=== PATIENT | female | born 1980 | race Caucasian/White ===

== ENCOUNTER 2019-07-30 10:21 | Emergency (ER) | payer BC ==
[2019-07-30 10:35] VITALS: RESP 18; TEMP 97.8
[2019-07-30] MEDS ORDERED: Acetaminophen-Codeine 300-30mg TAB PO STA (11:02)
[2019-07-30] MEDS ORDERED: LIDOCAINE 5% PATCH TOPICAL STA (11:02)
--- NOTE | 2019-07-30 11:08 | ED ---
General Adult HPI - General Chief complaint: Extremity Injury, Upper Stated complaint: arm & finger pain/numbness Time Seen by Provider: 07/30/19 10:40 Source: patient Mode of arrival: ambulatory Limitations: no limitations - History of Present Illness Initial comments: Patient is a 38-year-old female presenting to the emergency department with a chief complaint of right arm and neck pain. Patient reports 19 days ago she had a "kink" on the right side of her neck. Patient reports she attempted to sleep it off when she woke up the next day she developed pain along from the neck radiating distally to the right shoulder and arm. Patient reports the pain has been gradually getting worse causing her limited range of motion in the arm due to the pain. Patient reports she has seen her primary care 3 times who has only prescribed her baclofen and prednisone. Patient reports she went to another emergency room center who performed a CAT scan and discharge her with [place]. Patient reports she went to a neurologist who told her to come to the ED for pain control and to have an MRI. Patient denies any right lower external weakness. Patient reports the pain is located in the upper thoracic/lower cervical right paraspinal region and radiating distally to the upper right extremity. Patient denies any numbness and tingling. Patient reports the pain is exacerbated with right rotation of her head. Patient denies any headaches, blurry vision, chest pain, shortness of breath, lower extremity weakness.patient denies any trauma. - Related Data Allergies Allergy/AdvReac Type Severity Reaction Status Date / Time No Known Allergies Allergy Verified 07/30/19 10:30 Review of Systems ROS Statement: Those systems with pertinent positive or pertinent negative responses have been documented in the HPI. ROS Other: All systems not noted in ROS Statement are negative. Past Medical History Past Medical History: Asthma History of Any Multi-Drug Resistant Organisms: None Reported Past Surgical History: Section Additional Past Surgical History / Comment(s): c section x 2 Past Psychological History: Anxiety, PTSD Smoking Status: Current every day smoker Past Alcohol Use History: None Reported Past Drug Use History: Marijuana General Exam Limitations: no limitations General appearance: alert, in no apparent distress Head exam: Present: atraumatic, normocephalic, normal inspection Eye exam: Present: normal appearance, scleral icterus ENT exam: Present: normal exam, normal oropharynx, mucous membranes moist, TM's normal bilaterally, normal external ear exam Neck exam: Present: normal inspection, tenderness (Right paraspinal, lower ce rvical region), full ROM. Absent: lymphadenopathy Respiratory exam: Present: normal lung sounds bilaterally Cardiovascular Exam: Present: regular rate, normal rhythm, normal heart sounds Extremities exam: Present: normal inspection, normal capillary refill, other (+2 ulnar and radial pulses bilaterally.). Absent: full ROM (Limited range of motion in the right upper extremity due to pain) Back exam: Present: normal inspection, full ROM, tenderness (Right paraspinal upper thoracic region), paraspinal tenderness. Absent: CVA tenderness (R), CVA tenderness (L), muscle spasm Neurological exam: Present: alert, oriented X3 Psychiatric exam: Present: normal affect, normal mood Skin exam: Present: warm, intact, normal color Course Vital Signs 07/30/19 07/30/19 10:30 11:34 Temperature 97.8 F Pulse Rate 91 66 Respiratory 18 18 Rate Blood Pressure 150/46 119/66 O2 Sat by Pulse 99 98 Oximetry Medical Decision Making - Medical Decision Making Patient is a 38-year-old female presenting to the emergency department with a chief complaint of right arm and neck pain. Physical examination is indicative of right paraspinal tenderness in the cervical region and the pain seems to be radiating distally along the right upper extremity. Patient has full range of motion in the right upper extremities. Patient appears to be in a lot of discomfort. Patient had a CT performed an another ED department. CT results were obtained showing mild joint arthropathy and narrowing on the right-sided C3-C4 neuroforamen. Based on description of the pain, physical examination and imaging I suspect the patient to have a cervical radiculopathy. There has been no trauma to the region. Patient was given symptomatically control in the ED. Patient was advised to follow-up with an software quality specialist for further management. MAPS obtained and shows no signs of prescription abuse. Patient will be discharged with a Tylenol 3 starter pack. Patient does not to drive or operative heavy machinery when taking the medication. Strict return parameters were thoroughly discussed with patient or standing agreeable. Case discussed with physician. Disposition Clinical Impression: Cervical radiculopathy Disposition: HOME SELF-CARE Condition: Stable Instructions (If sedation given, give patient instructions): Cervical Radiculopathy (ED) Additional Instructions: Please follow up with an software quality specialist. Please return to emergency department if symptoms worsen. Alternate between Tylenol and ibuprofen for pain control. Is patient prescribed a controlled substance at d/c from ED?: No Referrals: None,Stated [Primary Care Provider] - 1-2 days Eric Oconnell DO [Doctor of Osteopathic Medicine] - 1-2 days Blaise Diamond MD [STAFF PHYSICIAN] - 1-2 days Time of Disposition: 14:08
[2019-07-30 11:35] VITALS: PULSE 66
[2019-07-30] MEDS ORDERED: HYDROmorphone 0.5 MG/0.5 ML SYRINGE IVP STA (12:30)
[2019-07-30] MEDS ORDERED: KETOROLAC 30 MG/ML 1 ML VIAL IVP STA (12:30)
[2019-07-30] MEDS ORDERED: ACET/COD 300 MG/30 MG STARTER PACK 6 TAB BTL PO STA (14:08)
[2019-07-30 14:22] VITALS: BP 121/77
== END 2019-07-30 14:22 | disposition home or self-care (01) ==
LOC: EC 10:21
DX: M54.12 Radiculopathy, cervical region (principal); M12.88 Other specific arthropathies, not elsewhere classified, other specified site; M48.02 Spinal stenosis, cervical region; F17.200 Nicotine dependence, unspecified, uncomplicated
CPT/HCPCS: 99283; 96374; 96375; J1885; J1170

== ENCOUNTER → 2020-04-24 | Outpatient (CLI) | payer OTHER ==
--- NOTE | 2020-04-24 14:58 | US ---
EXAMINATION TYPE: US pelvis complete transvag DATE OF EXAM: 04/24/2020 COMPARISON: NONE CLINICAL HISTORY: N83.0 OVARIAN CYST. Pt states known bilateral ovarian cysts/ pt states abnormal vag inal bleeding/ pt states scheduled for possible hysterectomy TECHNIQUE: Transvaginal (TV) and Transabdominal (TA) . Transabdominal sonographic images of the pel vis were acquired. Transvaginal sonographic images were medically necessary to better assess the fol lowing anatomy: uterus Date of LMP: 04/10/2020 EXAM MEASUREMENTS: Uterus: 9.5 x 5.7 x 7.2 cm Endometrial Stripe: 1.0 cm Right Ovary: 9.6 x 9.6 x 4.6 cm Left Ovary: 7.3 x 5.4 x 5.2 cm 1. Uterus: Anteverted Heterogeneous, Nabothian cysts in cervix/ C-sec scar visualized 2. Endometrium: ? thickened 3. Right Ovary: 2 complex cystic lesions 1)= 6.3 x 4.7 x 4.9 cm 2)= 5.3 x 5.5 x 5.0 cm 4. Left Ovary: Complex cystic lesion= 5.8 x 4.3 x 5.1 cm 5. Bilateral Adnexa: wnl 6. Posterior cul-de-sac: wnl Heterogeneous anteverted uterus. Endometrium within normal limits for early secretory phase of menstr ual cycle. No free fluid in pelvic cul-de-sac. Nonsimple cysts identified in both ovaries with diffuse low-lying echoes, suspect hemorrhagic cysts b ilaterally. One of the nonsimple cysts in the right ovary may have a peripheral lobulated solid compo nent. IMPRESSION: Nonsimple cyst bilateral ovaries, suspect hemorrhagic cysts. Short-term ultrasound follow -up in 6 weeks' time advised to reassess. Cystic neoplasm not excluded.
== END | disposition home or self-care (01) ==
LOC: RADUSWWP 13:52
PROVIDERS: ATTEND Obstetrics & Gynecology
DX: N83.202 Unspecified ovarian cyst, left side (principal); N83.201 Unspecified ovarian cyst, right side
CPT/HCPCS: 76830; 76856

== ENCOUNTER → 2020-10-18 | Outpatient (CLI) | payer BC, OTHER ==
[2020-10-18 12:50] LABS: Basophils # (A) 0.1 k/uL (0-0.2); Basophils % (A) 1 %; Eosinophils # (A) 0.4 k/uL (0-0.7); Eosinophils % (A) 4 %; HCT 34.2 % (34.0-46.0); HGB 11.1 gm/dL (11.4-16.0); Hypochromasia Moderate; Lymphocytes # (A) 2.5 k/uL (1.0-4.8); Lymphocytes % (A) 28 %; MCH 25.9 pg (25.0-35.0); MCHC 32.5 g/dL (31.0-37.0); MCV 79.7 fL (80.0-100.0); Mean Platelet Volume 8.4; Monocytes # (A) 0.3 k/uL (0-1.0); Monocytes % (A) 4 %; Neutrophils # (A) 5.5 k/uL (1.3-7.7); Neutrophils % (A) 63 %; Platelet Count 215 k/uL (150-450); Poikilocytosis Slight; RBC 4.29 m/uL (3.80-5.40); RDW 15.6 % (11.5-15.5); WBC 8.8 k/uL (3.8-10.6)
[2020-10-18 13:01] LABS: Appearance,Urine Clear (Clear); Bilirubin,Urine Negative (Negative); Blood,Urine Trace (Negative); Color,Urine Yellow; Glucose,Urine (UA) Negative (Negative); Ketones,Urine Negative (Negative); Leukocyte Esterase,Urine Negative (Negative); Mucus,Urine Many /hpf; Nitrite,Urine Negative (Negative); PH, Urine 5.5 (5.0-8.0); Partial Thromboplastin Time 25.3 sec (22.0-30.0); Protein,Urine Negative (Negative); Prothrombin Time 10.4 sec (9.0-12.0); RBC,Urine 1 /hpf (0-5); Specific Gravity,Urine 1.026 (1.001-1.035); Squamous Epithelial Cell,Urine 4 /hpf (0-4); Urobilinogen,Urine <2.0 mg/dL (<2.0); WBC,Urine 1 /hpf (0-5)
[2020-10-18 13:09] LABS: ALT 15 U/L (4-34); AST 23 U/L (14-36); African American GFR (CKD) >90 (>60 ml/min/1.73 sqM); Albumin 4.3 g/dL (3.5-5.0); Alkaline Phosphatase 71 U/L (38-126); Anion Gap 8 mmol/L; Blood Urea Nitrogen 13 mg/dL (7-17); Carbon Dioxide 27 mmol/L (22-30); Chloride 104 mmol/L (98-107); Cholesterol 180 mg/dL (<200); Glucose 91 mg/dL (74-99); HDL Cholesterol 39 mg/dL (40-60); LDL Cholesterol,Calculated 109 mg/dL (0-99); Non-African American GFR(CKD) >90 (>60 ml/min/1.73 sqM); Potassium 4.1 mmol/L (3.5-5.1); Sodium 139 mmol/L (137-145); Total Bilirubin 0.5 mg/dL (0.2-1.3); Total Protein 7.3 g/dL (6.3-8.2); Triglycerides 158 mg/dL (<150)
[2020-10-18 13:24] LABS: T4, Free (Free Thyroxine) 0.84 ng/dL (0.78-2.19)
[2020-10-18 21:04] LABS: Hemoglobin A1C 5.5 % (4.0-6.0)
== END | disposition home or self-care (01) ==
LOC: LABPAT 11:47
PROVIDERS: ATTEND Family Medicine
DX: Z01.818 Encounter for other preprocedural examination (principal); E66.01 Morbid (severe) obesity due to excess calories
CPT/HCPCS: 80053; 80061; 81001; 82306; 83036; 84439; 84443; 85025; 85610; 85730

== ENCOUNTER → 2020-11-02 | Outpatient (CLI) | payer BC, OTHER ==
[2020-11-02 16:19] LABS: Basophils % (A) 0 %; Eosinophils # (A) 0.3 k/uL (0-0.7); Eosinophils % (A) 4 %; HCT 30.3 % (34.0-46.0); HGB 9.9 gm/dL (11.4-16.0); Hypochromasia Slight; Lymphocytes # (A) 2.1 k/uL (1.0-4.8); Lymphocytes % (A) 29 %; MCH 25.5 pg (25.0-35.0); MCHC 32.6 g/dL (31.0-37.0); MCV 78.3 fL (80.0-100.0); Mean Platelet Volume 7.5; Monocytes # (A) 0.3 k/uL (0-1.0); Monocytes % (A) 4 %; Neutrophils # (A) 4.5 k/uL (1.3-7.7); Neutrophils % (A) 62 %; Platelet Count 308 k/uL (150-450); RBC 3.87 m/uL (3.80-5.40); RDW 15.6 % (11.5-15.5); WBC 7.2 k/uL (3.8-10.6)
[2020-11-02 16:41] LABS: African American GFR (CKD) >90 (>60 ml/min/1.73 sqM); Anion Gap 6 mmol/L; Blood Urea Nitrogen 8 mg/dL (7-17); Calcium 8.6 mg/dL (8.4-10.2); Carbon Dioxide 27 mmol/L (22-30); Chloride 106 mmol/L (98-107); Glucose 92 mg/dL (74-99); Non-African American GFR(CKD) >90 (>60 ml/min/1.73 sqM); Potassium 4.1 mmol/L (3.5-5.1); Sodium 139 mmol/L (137-145)
== END | disposition home or self-care (01) ==
LOC: LABPAT 15:42
PROVIDERS: ATTEND Obstetrics & Gynecology
DX: Z01.818 Encounter for other preprocedural examination (principal)
CPT/HCPCS: 36415; 80048; 85025

== ENCOUNTER 2020-11-06 05:51 | Observation (INO) | payer BC, OTHER ==
[2020-11-02 14:07] VITALS: BMI 44.6
[~2020-11-06 05:51] MED LIST: DEXAMETHASONE SOD PHOSPHATE 4 MG/ML 1 ML VIAL IV ONE; LIDOCAINE 1% (10MG/ML) FOR IV START INTRADERMA PRN; SCOPOLAMINE 1.5MG/72HR PATCH TRANSDERM ONE
[2020-11-06] MEDS: LACTATED RINGERS 1,000 ML IV SCH (06:39)
[2020-11-06] MEDS: HYDROmorphone 0.5 MG/0.5 ML SYRINGE IVP PRN ×5 (06:45→10:16)
--- NOTE | 2020-11-06 07:09 | P.HPOB ---
History of Present Illness H&P Date: 11/06/20 Chief Complaint: Pelvic pain, ovarian cysts 40 year old presents for total laparoscopoic hysterectomy, right salpingo- oopherectomy, left salpingectomy and possible left oopherectomy, with da rosalva; possible total abdominal hysterectomy. She has had persistent ovarian cysts, paraovarian cyst on the left and continued pelvic pain. Review of Systems All systems: negative Constitutional: Denies chills, Denies fever Eyes: denies blurred vision, denies pain Ears, nose, mouth and throat: Denies headache, Denies sore throat Cardiovascular: Denies chest pain, Denies shortness of breath Respiratory: Denies cough Gastrointestinal: Denies abdominal pain, Denies diarrhea, Denies nausea, Denies vomiting Genitourinary: Denies dysuria, Denies hematuria Musculoskeletal: Denies myalgias Integumentary: Denies pruritus, Denies rash Neurological: Denies numbness, Denies weakness Psychiatric: Denies anxiety, Denies depression Endocrine: Denies fatigue, Denies weight change Past Medical History Past Medical History: Asthma, Musculoskeletal Disorder Additional Past Medical History / Comment(s): recent anemia issues per pt. History of Any Multi-Drug Resistant Organisms: None Reported Past Surgical History: Section Additional Past Surgical History / Comment(s): c section x 2, pain procedures Past Anesthesia/Blood Transfusion Reactions: No Reported Reaction Additional Past Alcohol Use History / Comment(s): down to 6-7 cigs/day, has smoked for 20 yrs. - Past Family History Mother Family Medical History: No Reported History Medications and Allergies Home Medications Medication Instructions Recorded Confirmed Type Albuterol Inhaler (Mhu) [Ventolin 1 - 2 puff INHALATION RT-Q6H PRN 10/14/19 11/06/20 History Hfa Inhaler] Albuterol Nebulized [Ventolin 2.5 mg INHALATION Q6H PRN 10/14/19 11/06/20 History Nebulized] Ferrous Sulfate [Feosol] 325 mg PO DAILY 11/02/20 11/06/20 History Allergies Allergy/AdvReac Type Severity Reaction Status Date / Time No Known Allergies Allergy Verified 11/06/20 06:28 Exam Osteopathic Statement: *. No significant issues noted on an osteopathic structural exam other than those noted in the History and Physical/Consult. Vital Signs Temp Pulse Resp BP Pulse Ox 11/06/20 06:29 97.6 F 71 18 111/59 99 Intake and Output 11/05/20 11/06/20 11/06/20 22:59 06:59 14:59 Other: Weight 113.6 kg HEart: RRR Lungs: CTAB Abdomen: soft, nontender Extremeties: neg elvira's Assessment and Plan (1) Pelvic pain Current Visit: Yes Status: Acute Code(s): R10.2 - PELVIC AND PERINEAL PAIN SNOMED Code(s): 40174886 (2) Ovarian cyst Current Visit: Yes Status: Acute Code(s): N83.209 - UNSPECIFIED OVARIAN CYST, UNSPECIFIED SIDE SNOMED Code(s): 16915447 Plan: 1. TLH RSO, LS, possible LSO with da rosalva, diagnostic cystoscopy, possible NIRMAL BSO
[2020-11-06] MEDS ORDERED: fentaNYL (PF) 50 MCG/ML 2 ML AMP ONE (07:20)
[2020-11-06] MEDS ORDERED: MIDAZOLAM 2 MG/2 ML VIAL ONE (07:20)
[2020-11-06] MEDS ORDERED: NEOSTIGMINE 1 MG/ML 10 ML VIAL ONE (07:20)
[2020-11-06] MEDS ORDERED: LIDOCAINE 1% INJ 10MG/ML (20 ML MDV) ONE (07:20)
[2020-11-06] MEDS ORDERED: ONDANSETRON 4 MG/2 ML VIAL ONE (07:20)
[2020-11-06] MEDS ORDERED: SUCCINYLCHOLINE CHLORIDE 100 MG/5 ML SYR IV ONE (07:20)
[2020-11-06] MEDS ORDERED: HYDROmorphone (PF) 1 MG/ML ONE (07:20)
[2020-11-06] MEDS ORDERED: PROPOFOL 10 MG/ML 20 ML VIAL IV ONE (07:20)
[2020-11-06] MEDS ORDERED: GLYCOPYRROLATE 0.2 MG/ML 2 ML VIAL ONE (07:20)
[2020-11-06] MEDS ORDERED: ROCURONIUM 10 MG/ML (5 ML VIAL) IV ONE (07:20)
[2020-11-06] MEDS ORDERED: BUPIVACAINE (PF) 0.25% 30 ML VIAL SQ ONE ×2 (07:52→09:22)
[2020-11-06] MEDS ORDERED: LACTATED RINGERS 1,000 ML IV ONE ×2 (08:24→09:19)
--- NOTE | 2020-11-06 09:38 | P.OP ---
Date of Procedure: 11/06/20 Preoperative Diagnosis: 1. pelvic pain 2. bilateral ovarian cysts 3. endometriosis 4. pelvic adhesions Postoperative Diagnosis: 1. pelvic pain 2. bilateral ovarian cysts 3. endometriosis 4. pelvic adhesions Procedure(s) Performed: Total laparoscopic hysterectomy, bilateral salpingectomy with da mari Anesthesia: OLIVIA Surgeon: Destiney Sethi Informatics Educator #1: Wayne Baig Estimated Blood Loss (ml): 250 IV fluids (ml): 800 Urine output (ml): 200 Pathology: other (uterus, cervix, bilateral tubes and ovaries) Condition: stable Disposition: PACU Operative Findings: bilateral ovarian cysts and endometrioma, normal uterus, dilated fallopian tubes. endometriosis. posterior cul de sac adhesions. Description of Procedure: Patient taken the operating room where general anesthesia was obtained without difficulty. She is prepped and draped in normal sterile fashion dorsal lithotomy position, legs placed in the Csott stirrups. Weighted speculum placed in the vagina and the anterior lip the cervix was grasped with single-tooth tenaculum. The uterus sounded to 8 cm and the cervix diameter was 3 cm. The appropriate manipulator tip and ring were placed on the Ela manipulator. The Ela manipulator was then placed in the uterus. Oneal catheter was also placed. Attention was then turned to the abdomen and gloves were changed. A 5 mm supraumbilical incision was made the scalpel and a 5 mm optical trocar was placed under direct visualization. 10 cm to the right of this and 2 cm down a 5 mm incision was made and 8 mm da Mari port was placed under direct visualization. Same measurements on the opposite side of the patient's abdomen, the 5 mm incision was made and 8 mm da Mari port was placed under direct visualization. In the left upper quadrant a 10 mm incision was made and a 10 mm optical trocar was placed under direct visualization. The 5 mm optical trocar was then replaced with the 8 mm da Mari camera port. The robot was docked on patient's right side. The camera was introduced and then the monopolar curved scissor and [place] bipolar placed under direct visualization. I broke scrub and went to the physician console. I had already popped an endometrioma on the right ovary that was spilling chocolate fluid from the endometrioma in the pelvis. The right ovary was enlarged there is a large left cyst coming off of the left ovary. The both fallopian tubes were adhered to the ovaries which were then adhered to the posterior cul-de-sac, including the uterus and the posterior perineum. These areas were carefully peeled off the underlying structures and some blunt as well as sharp dissection was done. The left ovary was not well visualized at first. The left cyst was aspirated and then removed. Visualization showed that the left ovary was adhered to the posterior wall of the uterus. I was unable to do dissecting this free. The decision at this time was made to include the left ovary in a specimen for the surgery. The left infundibulopelvic ligament was cauterized with the [place] bipolar and cut with monopolar curved scissors. The left round ligament was cauterized with the [place] bipolar and cut with monopolar curved scissors. The posterior leaf of the broad ligament was taken down using the monopolar curved scissors. Anterior leaf of the broad ligament was then taken down using the monopolar curved scissors. The uterine artery was cauterized with the [place] bipolar and cut with monopolar curved scissors. The bladder flap was then started using the monopolar curved scissors. Attention was then turned to the right side of the patient's anatomy. Carefully dissected the right ovarian tissue off the posterior peritoneum. the right infundibular pelvic ligament was cauterized with the [place] bipolar and cut with monopolar curved scissors. The ovary was then freed by cauterizing and cutting through the utero-ovarian ligament and the fallopian tube. This was placed to the side. The right round ligament was cauterized with the [place] bipolar and cut with monopolar curved scissors. The anterior leaf was taken down using the monopolar curved scissors. The uterine artery was cauterized the [place] bipolar cut with monopolar curved scissors. The bladder flap was then finished on this side. Anterior colpotomy was made using the monopolar curved scissors. The rest of the uterus was from the vaginal cuff by following the ring around with the monopolar curved scissors through the uterosacral ligaments back to the anterior portion. Once the uterus and cervix were amputated they were pulled through the vaginal cuff. The ovarian tissue that had been placed this side was then placed through the vaginal cuff. Hemostasis was assured. The instruments were changed for the Cardier forcep and the lary suture cut. The vaginal cuff was then closed using 2-O stratafix barbed suture in a running fashion. Hemostasis was again assured and the pelvis was irrigated. All instruments were removed from the abdomen and the robot was undocked. I scrubbed back in to perform a cystoscopy. There were jets from both ureteral orifices. The abdominal incisions were closed with 4-0 Vicryl in a subcuticular fashion. Patient tolerated the procedure well, sponge and instrument counts correct 2 and she was taken to recovery room in stable condition condition
[2020-11-06] MEDS: ONDANSETRON 4 MG/2 ML VIAL IVP ONE (10:06)
[2020-11-06] MEDS ORDERED: KETOROLAC 15 MG/ML 1 ML VIAL IVP ONE (10:21)
[2020-11-06] MEDS ORDERED: ZOLPIDEM 5 MG TAB PO PRN (11:42)
[2020-11-06] MEDS ORDERED: Acetaminophen-Codeine 300-30mg TAB PO PRN (11:42)
[2020-11-06] MEDS ORDERED: diphenhydrAMINE 50 MG/ML 1 ML VIAL IVP PRN (11:42)
[2020-11-06] MEDS ORDERED: ONDANSETRON 4 MG/2 ML VIAL IVP PRN (11:42)
[2020-11-06] MEDS ORDERED: IBUPROFEN 600 MG TAB PO PRN (11:42)
[2020-11-06] MEDS ORDERED: ALBUTEROL NEBULIZED 2.5 MG/3 ML INHALATION PRN (13:29)
[2020-11-06] MEDS ORDERED: ALBUTEROL HFA INHALER INHALATION PRN (14:08)
[2020-11-06] MEDS: KETOROLAC 15 MG/ML 1 ML VIAL IVP PRN ×2 (16:07→23:44)
[2020-11-06] MEDS: SIMETHICONE 80 MG CHEWABLE PO PRN ×2 (19:58→23:45)
[2020-11-07] MEDS: SENNOSIDES-DOCUSATE SODIUM 1 EACH TAB PO SCH ×2 (00:28→10:55)
[2020-11-07] MEDS: Acetaminophen-Codeine 300-30mg TAB PO PRN ×2 (02:14→10:22)
[2020-11-07] MEDS: LACTATED RINGERS 1,000 ML IV SCH ×3 (02:47→10:51)
[2020-11-07] MEDS: ONDANSETRON 4 MG/2 ML VIAL IVP ONE (02:47)
[2020-11-07] MEDS: SIMETHICONE 80 MG CHEWABLE PO PRN (07:31)
[2020-11-07 07:45] LABS: Anisocytosis Slight; Basophils % (A) 0 %; Eosinophils % (A) 0 %; HCT 25.8 % (34.0-46.0); Hypochromasia Slight; Lymphocytes # (A) 1.7 k/uL (1.0-4.8); Lymphocytes % (A) 16 %; MCH 24.7 pg (25.0-35.0); MCHC 31.5 g/dL (31.0-37.0); MCV 78.4 fL (80.0-100.0); Mean Platelet Volume 7.7; Microcytosis Slight; Monocytes # (A) 0.4 k/uL (0-1.0); Monocytes % (A) 3 %; Neutrophils # (A) 8.6 k/uL (1.3-7.7); Neutrophils % (A) 80 %; Platelet Count 264 k/uL (150-450); RBC 3.29 m/uL (3.80-5.40); RDW 17.2 % (11.5-15.5); WBC 10.8 k/uL (3.8-10.6)
[2020-11-07 07:51] LABS: HGB 8.1 gm/dL (11.4-16.0)
--- NOTE | 2020-11-07 08:02 | P.DS ---
Providers Date of admission: 11/07/20 00:06 Expected date of discharge: 11/07/20 Attending physician: Destiney Sethi Primary care physician: Ashok Padilla - Discharge Diagnosis(es) (1) Pelvic pain Current Visit: Yes Status: Acute (2) Ovarian cyst Current Visit: Yes Status: Resolved (3) Status post robot-assisted surgical procedure TLH BSO Current Visit: Yes Status: Acute Hospital Course: She presented for total laparoscopic hysterectomy and possible bilateral salpingo-oophorectomy using da Mari for pelvic pain and ovarian cysts. She did undergo a TLHBSO with da Mari and diagnostic cystoscopy. Postoperative course was uncomplicated. She denies nausea, vomiting, chest pain, shortness of breath or calf pain. She is ambulating voiding without difficulty. Passing flatus and tolerating regular diet. Incisions are clean, dry, intact. She'll be discharged home postoperative day #1 in stable condition to follow-up with me in 3 weeks. Plan - Discharge Summary Discharge Rx Participant: Yes New Discharge Prescriptions: New Ibuprofen [Motrin] 600 mg PO Q6HR PRN #30 tab PRN Reason: Mild Discomfort Acetaminophen-Codeine 300-30mg [Tylenol w/codeine #3] 2 each PO Q6HR PRN #24 tab PRN Reason: Severe Pain No Action Albuterol Nebulized [Ventolin Nebulized] 2.5 mg INHALATION Q6H PRN PRN Reason: Dyspnea Albuterol Inhaler (Mhu) [Ventolin Hfa Inhaler] 1 - 2 puff INHALATION RT-Q6H PRN PRN Reason: Dyspnea Ferrous Sulfate [Feosol] 325 mg PO DAILY Discharge Medication List Albuterol Inhaler (Mhu) [Ventolin Hfa Inhaler] 1 - 2 puff INHALATION RT-Q6H PRN 10/14/19 [History] Albuterol Nebulized [Ventolin Nebulized] 2.5 mg INHALATION Q6H PRN 10/14/19 [History] Ferrous Sulfate [Feosol] 325 mg PO DAILY 11/02/20 [History] Acetaminophen-Codeine 300-30mg [Tylenol w/codeine #3] 2 each PO Q6HR PRN #24 tab 11/07/20 [Rx] Ibuprofen [Motrin] 600 mg PO Q6HR PRN #30 tab 02/23/21 [Rx] Follow up Appointment(s)/Referral(s): Destiney Sehti DO [Doctor of Osteopathic Medicine] - 3 Weeks Discharge Disposition: HOME SELF-CARE
[2020-11-07 10:09] VITALS: RESP 18
[2020-11-07 10:10] VITALS: BP 97/62; PULSE 85; TEMP 98.1
== END 2020-11-07 11:09 | disposition home or self-care (01) ==
LOC: OR 05:51 → 4FBP 09:43 → OR 23:55 → 4FBP 23:55 → OR 11-07 00:05 → UNDOADMOB 11-07 00:06 → 4FBP 11-07 00:06 → UNDODISOB 11-07 11:09
PROVIDERS: ADMIT Obstetrics & Gynecology; ATTEND Obstetrics & Gynecology
DX: D25.9 Leiomyoma of uterus, unspecified (principal); N72 Inflammatory disease of cervix uteri; N83.202 Unspecified ovarian cyst, left side; N83.201 Unspecified ovarian cyst, right side; N80.0 Endometriosis of uterus; F41.9 Anxiety disorder, unspecified; Z87.891 Personal history of nicotine dependence; Z83.3 Family history of diabetes mellitus; Z82.49 Family history of ischemic heart disease and other diseases of the circulatory system; Z80.0 Family history of malignant neoplasm of digestive organs; E66.01 Morbid (severe) obesity due to excess calories; Z68.41 Body mass index [BMI] 40.0-44.9, adult; G43.909 Migraine, unspecified, not intractable, without status migrainosus
CPT/HCPCS: 58552; S2900; 81025; 85025; 86850; 86900; 86901; 88307; 94640

== ENCOUNTER 2023-04-18 13:40 | Emergency (ER) | payer BC, OTHER ==
[2023-04-18] MEDS ORDERED: SODIUM CHLORIDE 0.9% 2,000 ML IV STA (14:09)
[2023-04-18] MEDS ORDERED: FAMOTIDINE 20 MG/2 ML VIAL IV STA (14:10)
[2023-04-18 14:40] LABS: Basophils % (A) 0 %; Eosinophils # (A) 0.1 k/uL (0-0.7); Eosinophils % (A) 1 %; HCT 43.4 % (34.0-46.0); HGB 15.3 gm/dL (11.4-16.0); Lymphocytes # (A) 1.2 k/uL (1.0-4.8); Lymphocytes % (A) 10 %; MCH 30.9 pg (25.0-35.0); MCHC 35.3 g/dL (31.0-37.0); MCV 87.4 fL (80.0-100.0); Mean Platelet Volume 8.6; Monocytes # (A) 0.5 k/uL (0-1.0); Monocytes % (A) 4 %; Neutrophils # (A) 10.4 k/uL (1.3-7.7); Neutrophils % (A) 84 %; Platelet Count 233 k/uL (150-450); RBC 4.96 m/uL (3.80-5.40); WBC 12.4 k/uL (3.8-10.6)
--- NOTE | 2023-04-18 14:45 | ED ---
Nausea/Vomiting/Diarrhea HPI - General Chief complaint: Nausea/Vomiting/Diarrhea Stated complaint: nausea, vomiting Time Seen by Provider: 04/18/23 13:42 Source: patient, EMS, RN notes reviewed Mode of arrival: EMS Limitations: no limitations - History of Present Illness Initial comments: This is a 42-year-old female who presents to the emergency department for nausea and vomiting. States that she had been on Wegovy 0.25 mg, however the pharmacy was out of this dose, and she was prescribed the 1.0 mg dose. She took this dose last night, and since this morning she's been vomiting profusely. She called EMS, who gave her a dose of epinephrine for hypotension and Zofran for the nausea and vomiting. She has since started to feel much better. Also states that when she was vomiting, her hands were cramping up and she could not move them, which has since resolved. Also reports associated chest discomfort, which she believes may be from all of the vomiting. Denies any fevers, chills, sore throat, cough, dyspnea, palpitations, abdominal pain, diarrhea, back pain, or headaches. MD complaint: nausea, vomiting - Related Data Home Medications Medication Instructions Recorded Confirmed Albuterol Inhaler [Ventolin Hfa 1 - 2 puff INHALATION RT-Q6H PRN 10/14/19 0 11/06/20 Inhaler] Albuterol Nebulized [Ventolin 2.5 mg INHALATION Q6H PRN 10/14/19 11/06/20 Nebulized] Ferrous Sulfate [Feosol] 325 mg PO DAILY 11/02/20 11/06/20 Previous Rx's Medication Instructions Recorded Acetaminophen-Codeine 300-30mg 2 each PO Q6HR PRN #24 tab 11/07/20 [Tylenol w/codeine #3] Ibuprofen [Motrin] 600 mg PO Q6HR PRN #30 tab 11/07/20 Ondansetron Odt [Zofran Odt] 4 mg PO Q8HR PRN #20 tab 04/18/23 Allergies Allergy/AdvReac Type Severity Reaction Status Date / Time No Known Allergies Allergy Verified 04/18/23 14:10 Review of Systems ROS Statement: Those systems with pertinent positive or pertinent negative responses have been documented in the HPI. ROS Other: All systems not noted in ROS Statement are negative. Past Medical History Past Medical History: Asthma, Musculoskeletal Disorder Additional Past Medical History / Comment(s): right shoulder down to fingertips numb, migraines History of Any Multi-Drug Resistant Organisms: None Reported Past Surgical History: Section Additional Past Surgical History / Comment(s): c section x 2, pain procedures Past Anesthesia/Blood Transfusion Reactions: No Reported Reaction Past Psychological History: Anxiety, PTSD Smoking Status: Former smoker Past Alcohol Use History: None Reported Past Drug Use History: Marijuana - Past Family History Mother Family Medical History: No Reported History General Exam Limitations: no limitations General appearance: alert, in no apparent distress Head exam: Present: atraumatic, normocephalic, normal inspection Respiratory exam: Present: normal lung sounds bilaterally. Absent: respiratory distress, wheezes, rales, rhonchi, stridor Cardiovascular Exam: Present: regular rate, normal rhythm, normal heart sounds. Absent: systolic murmur, diastolic murmur, rubs, gallop, clicks GI/Abdominal exam: Present: soft, normal bowel sounds. Absent: distended, tenderness, guarding, rebound, rigid Neurological exam: Present: alert, oriented X3, CN II-XII intact Psychiatric exam: Present: normal affect, normal mood Skin exam: Present: warm, dry, intact, normal color. Absent: rash Course Vital Signs 04/18/23 04/18/23 14:02 16:14 Temperature 98.6 F 98.1 F Pulse Rate 93 87 Respiratory 16 5 L Rate Blood Pressure 105/78 123/78 O2 Sat by Pulse 98 100 Oximetry Medical Decision Making - Medical Decision Making This is a 42-year-old female who presents to the emergency department for nausea and vomiting. Was pt. sent in by a medical professional or institution? @ -No Did you speak to anyone other than the patient for history? @ -No Did you review nursing and triage notes? @ -No, I disagree with the aspect about the medication not being in her system for 2 months. Patient told me that she had been taking 0.25 mg, however that medication ran out and was unavailable, causing her to have to increase the dose to 1 mg. Were old charts reviewed? @ -No Differential Diagnosis? @ -Differential Nausea and Vomiting: Gastroenteritis, cholecystitis, appendicitis, pancreatitis, migraine, benign positional vertigo, food borne illness, pyelonephritis, irritable bowel syndrome, influenza, Covid, GERD, incarcerated hernia, intestinal obstruction, this is not meant to be an all-inclusive list. EKG interpreted by me (3pts min.)? @ -EKG interpreted by me demonstrating the following: Sinus rhythm. Ventricular rate 85 bpm, UT interval 120 ms, QRS duration 93 ms, QTC 403 ms. X-rays interpreted by me (1pt min.)? @ -Chest x-ray obtained, my interpretation identifies no localized consolidations or infiltrates. CT interpreted by me (1pt min.)? @ -Not obtained U/S interpreted by me (1pt. min.)? @ -Not obtained What testing was considered but not performed? (CT, X-rays, U/S, labs)? Why? @ -None What meds were considered but not given? Why? @ -None Did you discuss the management of the patient with other professionals? @ -No Did you reconcile home meds? @ -No Was smoking cessation discussed for >3mins.? @ -No Was critical care preformed (if so, how long)? @ -No Were there social determinants of health that impacted care today? How? (Homelessness, low income, unemployed, alcoholism, drug addiction, transportation, low edu. Level, literacy, decrease access to med. care, [facility], rehab)? @ -No Was there de-escalation of care discussed even if they declined? (Discuss DNR or withdrawal of care, Hospice)? @ -No What co-morbidities impacted this encounter? (DM, HTN, Smoking, COPD, CAD, Cancer, CVA, Hep., AIDS, mental health diagnosis, sleep apnea, morbid obesity)? @ -Morbid obesity Was patient admitted / discharged? @ -Discharged. Lab work obtained and found to be nonactionable. Chest x-ray reveals no acute process. Patient initially declined the need for any nausea medication in the emergency department, as she was given Zofran by EMS. However she was given Pepcid and a 2 L bolus of IV fluids. She did later need a dose of Reglan to further help with the nausea, however this effectively managed it and she was able to drink water without difficulty. She continued to maintain adequate blood pressure while in the emergency department. Patient's heart score is 2. I did offer to repeat a second troponin, however the patient declined. Patient overall felt much better and requested discharge home. Prescription for Zofran provided with dosing instructions reviewed. Advised she avoid giving herself another dose of the Wegovy for the meantime. She is advised to slowly advance her diet as tolerated and remain well-hydrated with close follow-up with her primary care provider. Undiagnosed new problem with uncertain prognosis? @ -None Drug Therapy requiring intensive monitoring for toxicity (Heparin, Nitro, Insulin, Cardizem)? @ -None Were any procedures done? @ -None Diagnosis/symptom? @ -Nausea and vomiting, chest pain Acute, or Chronic, or Acute on Chronic? @ -Acute Uncomplicated (without systemic symptoms) or Complicated (systemic symptoms)? @ -Uncomplicated Side effects of treatment? @ -None Exacerbation, Progression, or Severe Exacerbation] @ -Not applicable Poses a threat to life or bodily function? @ -No Return precautions reviewed in depth, the patient is instructed to return to the emergency department with any new, worsening, or concerning symptoms. Patient verbalized understanding. This case was discussed in detail with the attending ED physician, Dr. Hahn. Presentation, findings, and treatment plan discussed in detail as well. - Lab Data Result diagrams: 04/18/23 14:23 04/18/23 14:23 Lab Results 04/18/23 04/18/23 04/18/23 Range/Units 14:23 14:23 14:23 WBC 12.4 H (3.8-10.6) k/uL RBC 4.96 (3.80-5.40) m/uL Hgb 15.3 (11.4-16.0) gm/dL Hct 43.4 (34.0-46.0) % MCV 87.4 (80.0-100.0) fL MCH 30.9 (25.0-35.0) pg MCHC 35.3 (31.0-37.0) g/dL RDW 13.0 (11.5-15.5) % Plt Count 233 (150-450) k/uL MPV 8.6 Neutrophils % 84 % Lymphocytes % 10 % Monocytes % 4 % Eosinophils % 1 % Basophils % 0 % Neutrophils # 10.4 H (1.3-7.7) k/uL Lymphocytes # 1.2 (1.0-4.8) k/uL Monocytes # 0.5 (0-1.0) k/uL Eosinophils # 0.1 (0-0.7) k/uL Basophils # 0.0 (0-0.2) k/uL Sodium 139 (137-145) mmol/L Potassium 4.0 (3.5-5.1) mmol/L Chloride 106 (98-107) mmol/L Carbon Dioxide 22 (22-30) mmol/L Anion Gap 11 mmol/L BUN 12 (7-17) mg/dL Creatinine 0.71 (0.52-1.04) mg/dL Est GFR (CKD-EPI)AfAm >90 (>60 ml/min/1.73 sqM) Est GFR (CKD-EPI)NonAf >90 (>60 ml/min/1.73 sqM) Glucose 95 (74-99) mg/dL Calcium 9.1 (8.4-10.2) mg/dL Magnesium 1.5 L (1.6-2.3) mg/dL Total Bilirubin 1.2 (0.2-1.3) mg/dL AST 46 H (14-36) U/L ALT 49 H (4-34) U/L Alkaline Phosphatase 79 (38-126) U/L Troponin I <0.012 (0.000-0.034) ng/mL Total Protein 7.2 (6.3-8.2) g/dL Albumin 4.3 (3.5-5.0) g/dL Amylase 40 (30-110) U/L Lipase 51 (23-300) U/L Urine Color Urine Appearance (Clear) Urine pH (5.0-8.0) Ur Specific Stuart (1.001-1.035) Urine Protein (Negative) Urine Glucose (UA) (Negative) Urine Ketones (Negative) Urine Blood (Negative) Urine Nitrite (Negative) Urine Bilirubin (Negative) Urine Urobilinogen (<2.0) mg/dL Ur Leukocyte Esterase (Negative) 04/18/23 Range/Units 14:36 WBC (3.8-10.6) k/uL RBC (3.80-5.40) m/uL Hgb (11.4-16.0) gm/dL Hct (34.0-46.0) % MCV (80.0-100.0) fL MCH (25.0-35.0) pg MCHC (31.0-37.0) g/dL RDW (11.5-15.5) % Plt Count (150-450) k/uL MPV Neutrophils % % Lymphocytes % % Monocytes % % Eosinophils % % Basophils % % Neutrophils # (1.3-7.7) k/uL Lymphocytes # (1.0-4.8) k/uL Monocytes # (0-1.0) k/uL Eosinophils # (0-0.7) k/uL Basophils # (0-0.2) k/uL Sodium (137-145) mmol/L Potassium (3.5-5.1) mmol/L Chloride (98-107) mmol/L Carbon Dioxide (22-30) mmol/L Anion Gap mmol/L BUN (7-17) mg/dL Creatinine (0.52-1.04) mg/dL Est GFR (CKD-EPI)AfAm (>60 ml/min/1.73 sqM) Est GFR (CKD-EPI)NonAf (>60 ml/min/1.73 sqM) Glucose (74-99) mg/dL Calcium (8.4-10.2) mg/dL Magnesium (1.6-2.3) mg/dL Total Bilirubin (0.2-1.3) mg/dL AST (14-36) U/L ALT (4-34) U/L Alkaline Phosphatase (38-126) U/L Troponin I (0.000-0.034) ng/mL Total Protein (6.3-8.2) g/dL Albumin (3.5-5.0) g/dL Amylase (30-110) U/L Lipase (23-300) U/L Urine Color Light Yellow Urine Appearance Clear (Clear) Urine pH 8.0 (5.0-8.0) Ur Specific Stuart 1.011 (1.001-1.035) Urine Protein Negative (Negative) Urine Glucose (UA) Negative (Negative) Urine Ketones Negative (Negative) Urine Blood Negative (Negative) Urine Nitrite Negative (Negative) Urine Bilirubin Negative (Negative) Urine Urobilinogen <2.0 (<2.0) mg/dL Ur Leukocyte Esterase Negative (Negative) - Radiology Data Radiology results: report reviewed, image reviewed Disposition Clinical Impression: Nausea and vomiting, Chest pain Disposition: HOME SELF-CARE Instructions (If sedation given, give patient instructions): Acute Nausea and Vomiting (ED) Additional Instructions: Return to the emergency department with any new, worsening, or concerning symptoms. You can take the Zofran up to every 8 hours as needed for nausea and vomiting. Slowly advance your diet as tolerated and remain well-hydrated. Follow up with your primary care provider in 1-2 days. Prescriptions: Ondansetron Odt [Zofran Odt] 4 mg PO Q8HR PRN #20 tab PRN Reason: Nausea And Vomiting Is patient prescribed a controlled substance at d/c from ED?: No Referrals: Ashok Padilla DO [Primary Care Provider] - 1-2 days
--- NOTE | 2023-04-18 14:51 | XR ---
EXAMINATION TYPE: XR chest 2V DATE OF EXAM: 04/18/2023 2:45 PM COMPARISON: CT chest 12/10/2009 TECHNIQUE: XR chest 2V Frontal and lateral views of the chest. CLINICAL INDICATION:Female, 42 years old with history of Chest pain; FINDINGS: Lungs/Pleura: There is no evidence of pleural effusion, focal consolidation, or pneumothorax. Pulmonary vascularity: Unremarkable. Heart/mediastinum: Cardiomediastinal silhouette is unremarkable. Musculoskeletal: No acute osseous pathology. Anterior cervical fusion hardware. IMPRESSION: No acute cardiopulmonary disease/process.
[2023-04-18 14:58] LABS: ALT 49 U/L (4-34); AST 46 U/L (14-36); African American GFR (CKD) >90 (>60 ml/min/1.73 sqM); Albumin 4.3 g/dL (3.5-5.0); Alkaline Phosphatase 79 U/L (38-126); Amylase 40 U/L (30-110); Anion Gap 11 mmol/L; Blood Urea Nitrogen 12 mg/dL (7-17); Calcium 9.1 mg/dL (8.4-10.2); Carbon Dioxide 22 mmol/L (22-30); Chloride 106 mmol/L (98-107); Glucose 95 mg/dL (74-99); Lipase 51 U/L (23-300); Magnesium 1.5 mg/dL (1.6-2.3); Non-African American GFR(CKD) >90 (>60 ml/min/1.73 sqM); Sodium 139 mmol/L (137-145); Total Bilirubin 1.2 mg/dL (0.2-1.3); Total Protein 7.2 g/dL (6.3-8.2)
[2023-04-18 15:03] LABS: Appearance,Urine Clear (Clear); Bilirubin,Urine Negative (Negative); Blood,Urine Negative (Negative); Color,Urine Light Yellow; Glucose,Urine (UA) Negative (Negative); Ketones,Urine Negative (Negative); Leukocyte Esterase,Urine Negative (Negative); Nitrite,Urine Negative (Negative); Protein,Urine Negative (Negative); Specific Gravity,Urine 1.011 (1.001-1.035); Urobilinogen,Urine <2.0 mg/dL (<2.0)
[2023-04-18] MEDS ORDERED: METOCLOPRAMIDE 5 MG/ML 2 ML VIAL IVP STA (15:17)
[2023-04-18] MEDS ORDERED: LORazepam 1 MG TAB PO STA (16:40)
[2023-04-18] MEDS ORDERED: ONDANSETRON 4 MG ODT STARTER PACK 2 TAB BTL PO STA (16:40)
[2023-04-18 16:51] VITALS: BP 123/78; PULSE 87; RESP 5; TEMP 98.1
== END 2023-04-18 17:10 | disposition home or self-care (01) ==
LOC: EC 13:40
DX: R11.2 Nausea with vomiting, unspecified (principal); R07.89 Other chest pain; J45.909 Unspecified asthma, uncomplicated; F41.9 Anxiety disorder, unspecified; Z87.891 Personal history of nicotine dependence; F12.90 Cannabis use, unspecified, uncomplicated; Z79.899 Other long term (current) drug therapy
CPT/HCPCS: 36415; 80053; 82150; 83690; 83735; 84484; 85025; 81003; 71046; 99284; 96374; 96375; 96361 ×2; J2765; S0119

== ENCOUNTER 2023-07-17 22:20 | Emergency (ER) | payer BC, OTHER ==
[2023-07-17 22:29] VITALS: TEMP 98.5
[2023-07-17] MEDS ORDERED: SODIUM CHLORIDE 0.9% 1,000 ML IV STA (22:52)
[2023-07-17] MEDS ORDERED: ONDANSETRON 4 MG/2 ML VIAL IVP STA (22:52)
[2023-07-17] MEDS ORDERED: MORPHINE SULFATE 4 MG/ML SYRINGE IVP STA (22:52)
[2023-07-17 23:20] LABS: Basophils # (A) 0.1 k/uL (0-0.2); Basophils % (A) 1 %; Eosinophils # (A) 0.6 k/uL (0-0.7); Eosinophils % (A) 7 %; HCT 42.5 % (34.0-46.0); HGB 14.6 gm/dL (11.4-16.0); Lymphocytes # (A) 3.2 k/uL (1.0-4.8); Lymphocytes % (A) 37 %; MCH 30.8 pg (25.0-35.0); MCHC 34.3 g/dL (31.0-37.0); Mean Platelet Volume 8.2; Monocytes # (A) 0.4 k/uL (0-1.0); Monocytes % (A) 4 %; Neutrophils # (A) 4.2 k/uL (1.3-7.7); Neutrophils % (A) 49 %; Platelet Count 217 k/uL (150-450); RBC 4.72 m/uL (3.80-5.40); WBC 8.6 k/uL (3.8-10.6)
[2023-07-17 23:34] LABS: ALT 32 U/L (4-34); AST 34 U/L (14-36); African American GFR (CKD) >90 (>60 ml/min/1.73 sqM); Albumin 4.2 g/dL (3.5-5.0); Alkaline Phosphatase 93 U/L (38-126); Amylase 35 U/L (30-110); Anion Gap 8 mmol/L; Blood Urea Nitrogen 18 mg/dL (7-17); Calcium 9.5 mg/dL (8.4-10.2); Carbon Dioxide 28 mmol/L (22-30); Chloride 105 mmol/L (98-107); Glucose 100 mg/dL (74-99); Lipase 127 U/L (23-300); Non-African American GFR(CKD) 90 (>60 ml/min/1.73 sqM); Potassium 4.2 mmol/L (3.5-5.1); Sodium 141 mmol/L (137-145); Total Bilirubin 0.5 mg/dL (0.2-1.3); Total Protein 6.9 g/dL (6.3-8.2)
[2023-07-17 23:52] LABS: Partial Thromboplastin Time 27.6 sec (22.0-30.0); Prothrombin Time 10.5 sec (10.0-12.5)
--- NOTE | 2023-07-18 00:53 | US ---
EXAM: US Abdomen Limited, Right Upper Quadrant CLINICAL HISTORY: ITS.REASON US Reason: epigastric pain TECHNIQUE: Real-time ultrasound of the right upper quadrant with image documentation. COMPARISON: No relevant prior studies available. FINDINGS: Liver: Mild hepatomegaly. 18.2 cm craniocaudal. Heterogeneous appearance of the liver. No intrahepatic bile duct dilation. Gallbladder: Negative sonographic Rajput sign. No gallstones. Common bile duct: Common bile duct 4.3 mm. No stones. No dilation. Pancreas: Unremarkable as visualized. Right kidney: Right kidney 9.7 cm in length. No stones. No hydronephrosis. IMPRESSION: 1. Normal gallbladder. 2. Heterogeneous appearance of the liver. May represent fatty infiltration or other hepatic infiltrative process.
--- NOTE | 2023-07-18 01:18 | ED ---
Abdominal Pain HPI - General Chief Complaint: Abdominal Pain Stated Complaint: Abd pain Time Seen by Provider: 07/17/23 22:39 Source: patient Mode of arrival: ambulatory Limitations: no limitations - History of Present Illness Initial Comments: 42-year-old female presenting with chief complaint of epigastric pain. Patient states that she has had intermittent pain ongoing for the last few weeks. Tonight the pain was severe. Patient states that she uses ibuprofen daily for the last 2 years due to muscular and joint pain. No chest pain, difficulty breathing, nausea, vomiting, diarrhea, fever, dysuria, hematuria, flank pain, dizziness. - Related Data Home Medications Medication Instructions Recorded Confirmed Black Cohosh 40 Mg 40 mg PO DAILY 07/17/23 07/17/23 Evening [place] Oil 1,000 mg PO DAILY 07/17/23 07/17/23 Ibuprofen [Motrin] 800 mg PO Q8H PRN 07/17/23 07/17/23 Naproxen Sodium [Aleve] 220 mg PO DAILY 07/17/23 07/17/23 Rimegepant Sulfate [Nurtec Odt] 75 mg PO Q48H 07/17/23 07/17/23 Previous Rx's Medication Instructions Recorded Pantoprazole [Protonix] 40 mg PO DAILY #20 tab 07/18/23 Sucralfate [Carafate] 1 gm PO BID #20 tablet 07/18/23 Allergies Allergy/AdvReac Type Severity Reaction Status Date / Time No Known Allergies Allergy Verified 07/17/23 22:49 Review of Systems ROS Statement: Those systems with pertinent positive or pertinent negative responses have been documented in the HPI. ROS Other: All systems not noted in ROS Statement are negative. Past Medical History Past Medical History: Asthma, Musculoskeletal Disorder Additional Past Medical History / Comment(s): right shoulder down to fingertips numb, migraines History of Any Multi-Drug Resistant Organisms: None Reported Past Surgical History: Section Additional Past Surgical History / Comment(s): c section x 2, pain procedures Past Anesthesia/Blood Transfusion Reactions: No Reported Reaction Past Psychological History: Anxiety, PTSD Smoking Status: Never smoker Past Alcohol Use History: Occasional Past Drug Use History: Marijuana - Past Family History Mother Family Medical History: No Reported History General Exam Limitations: no limitations General appearance: alert, in no apparent distress Head exam: Present: atraumatic, normocephalic, normal inspection Eye exam: Present: normal appearance, EOMI Neck exam: Present: normal inspection, full ROM Respiratory exam: Present: normal lung sounds bilaterally. Absent: respiratory distress, wheezes, rales, rhonchi, stridor Cardiovascular Exam: Present: regular rate, normal rhythm, normal heart sounds. Absent: systolic murmur, diastolic murmur, rubs, gallop, clicks GI/Abdominal exam: Present: soft, tenderness. Absent: distended, guarding, rebound, rigid Neurological exam: Present: alert, oriented X3 Psychiatric exam: Present: normal affect, normal mood Skin exam: Present: warm, dry, intact, normal color. Absent: rash Course Vital Signs 07/17/23 07/17/23 07/17/23 22:21 22:40 23:00 Temperature 98.5 F Pulse Rate 66 61 60 Respiratory 16 20 18 Rate Blood Pressure 144/92 124/89 124/89 O2 Sat by Pulse 100 98 99 Oximetry 07/17/23 07/18/23 07/18/23 23:27 00:00 01:26 Temperature Pulse Rate 65 60 65 Respiratory 17 19 17 Rate Blood Pressure 114/72 114/72 115/75 O2 Sat by Pulse 98 98 100 Oximetry Medical Decision Making - Medical Decision Making Was pt. sent in by a medical professional or institution (, PA, SLITTER HELPER, urgent care, hospital, or long term...) When possible be specific @ -No Did you speak to anyone other than the patient for history (EMS, parent, family, police, friend...)? What history was obtained from this source @ -No Did you review nursing and triage notes (agree or disagree)? Why? @ -I reviewed and agree with nursing and triage notes Were old charts reviewed (outside hosp., previous admission, EMS record, old EKG, old radiological studies, urgent care reports/EKG's, long term records)? Report findings @ -No old charts were reviewed Differential Diagnosis (chest pain, altered mental status, abdominal pain women, abdominal pain men, vaginal bleeding, weakness, fever, dyspnea, syncope, headache, dizziness, GI bleed, back pain, seizure, CVA, palpatations, mental health, musculoskeletal)? @ -MDM Differential Abdominal Pain Women: Appendicitis, Cholecystitis, diverticulosis, ischemic bowel, pancreatitis, hepatitis, UTI, gastroenteritis, AAA, incarcerated hernia, bowel obstruction, constipation, inflammatory bowel, hepatitis, peptic ulcer disease, splenic infarction, perforated viscus, vulvitis, ovarian torsion, PID, kidney stone, placenta abruption... This is not meant to be an all-inclusive list EKG interpreted by me (3pts min.). @ -Sinus rhythm ventricular rate of 60. IA interval 154. QRS 99. QTC 438. QTC 440. No ischemic changes. X-rays interpreted by me (1pt min.). @ -None done CT interpreted by me (1pt min.). @ -None done U/S interpreted by me (1pt. min.). @ -Normal gallbladder. Heterogenous appearance of the liver. May represent fatty infiltration other hepatic infiltrative process What testing was considered but not performed or refused? (CT, X-rays, U/S, labs)? Why? @ -None What meds were considered but not given or refused? Why? @ -None Did you discuss the management of the patient with other professionals (professionals i.e. , PA, SLITTER HELPER, lab, RT, psych nurse, social media executive, bank boss, teacher, electrical engineering drafting officer, business case analyst)? Give summary @ -No Was smoking cessation discussed for >3mins.? @ -No Was critical care preformed (if so, how long)? @ -No Were there social determinants of health that impacted care today? How? (Homelessness, low income, unemployed, alcoholism, drug addiction, transportation, low edu. Level, literacy, decrease access to med. care, senior care, rehab)? @ -No Was there de-escalation of care discussed even if they declined (Discuss DNR or withdrawal of care, Hospice)? DNR status @ -No What co-morbidities impacted this encounter? (DM, HTN, Smoking, COPD, CAD, Cancer, CVA, ARF, Chemo, Hep., AIDS, mental health diagnosis, sleep apnea, morbid obesity)? @ -None Was patient admitted / discharged? Hospital course, mention meds given and route, prescriptions, significant lab abnormalities, going to OR and other pertinent info. @ -42-year-old female presenting with chief complaint of epigastric pain. Patient is a daily ibuprofen use or. Physical exam was conducted. Lab work shows no leukocytosis or anemia. Amylase and lipase are WNL. Negative troponin and EKG shows no ischemic changes. Ultrasound shows normal gallbladder, fatty liver noted. Patient reports improvement after pain medication. She is educated on potential ulcer/gastritis. Instructed to cut back her ibuprofen use, Carafate and Protonix, follow-up with PCP. Follow-up with PCP. Report back to ER with any new or worsening symptoms. Discussed return parameters and answered all questions. Patient conveyed verbal understanding and agreed to the plan. I discussed this case in detail with my attending Dr. Oliveira Undiagnosed new problem with uncertain prognosis? @ -No Drug Therapy requiring intensive monitoring for toxicity (Heparin, Nitro, Insulin, Cardizem)? @ -No Were any procedures done? @ -No Diagnosis/symptom? @ -Gastritis Acute, or Chronic, or Acute on Chronic? @ -acute Uncomplicated (without systemic symptoms) or Complicated (systemic symptoms)? @ -Uncomplicated Side effects of treatment? @ -No Exacerbation, Progression, or Severe Exacerbation? @ -No Poses a threat to life or bodily function? How? (Chest pain, [place], [place], pneumonia, PE, COPD, DKA, ARF, appy, cholecystitis, CVA, Diverticulitis, Homicidal, Suicidal, threat to staff... and all critical care pts) @ -No - Lab Data Result diagrams: 07/17/23 23:00 07/17/23 23:00 Lab Results 07/17/23 07/17/23 07/17/23 Range/Units 23:00 23:00 23:00 WBC 8.6 (3.8-10.6) k/uL RBC 4.72 (3.80-5.40) m/uL Hgb 14.6 (11.4-16.0) gm/dL Hct 42.5 (34.0-46.0) % MCV 90.0 (80.0-100.0) fL MCH 30.8 (25.0-35.0) pg MCHC 34.3 (31.0-37.0) g/dL RDW 13.0 (11.5-15.5) % Plt Count 217 (150-450) k/uL MPV 8.2 Neutrophils % 49 % Lymphocytes % 37 % Monocytes % 4 % Eosinophils % 7 % Basophils % 1 % Neutrophils # 4.2 (1.3-7.7) k/uL Lymphocytes # 3.2 (1.0-4.8) k/uL Monocytes # 0.4 (0-1.0) k/uL Eosinophils # 0.6 (0-0.7) k/uL Basophils # 0.1 (0-0.2) k/uL PT 10.5 (10.0-12.5) sec INR 1.0 (<1.2) APTT 27.6 (22.0-30.0) sec Sodium 141 (137-145) mmol/L Potassium 4.2 (3.5-5.1) mmol/L Chloride 105 (98-107) mmol/L Carbon Dioxide 28 (22-30) mmol/L Anion Gap 8 mmol/L BUN 18 H (7-17) mg/dL Creatinine 0.81 (0.52-1.04) mg/dL Est GFR (CKD-EPI)AfAm >90 (>60 ml/min/1.73 sqM) Est GFR (CKD-EPI)NonAf 90 (>60 ml/min/1.73 sqM) Glucose 100 H (74-99) mg/dL Plasma Lactic Acid Jaxson (0.7-2.0) mmol/L Calcium 9.5 (8.4-10.2) mg/dL Total Bilirubin 0.5 (0.2-1.3) mg/dL AST 34 (14-36) U/L ALT 32 (4-34) U/L Alkaline Phosphatase 93 (38-126) U/L Troponin I (0.000-0.034) ng/mL Total Protein 6.9 (6.3-8.2) g/dL Albumin 4.2 (3.5-5.0) g/dL Amylase 35 (30-110) U/L Lipase 127 (23-300) U/L 07/17/23 07/17/23 Range/Units 23:00 23:00 WBC (3.8-10.6) k/uL RBC (3.80-5.40) m/uL Hgb (11.4-16.0) gm/dL Hct (34.0-46.0) % MCV (80.0-100.0) fL MCH (25.0-35.0) pg MCHC (31.0-37.0) g/dL RDW (11.5-15.5) % Plt Count (150-450) k/uL MPV Neutrophils % % Lymphocytes % % Monocytes % % Eosinophils % % Basophils % % Neutrophils # (1.3-7.7) k/uL Lymphocytes # (1.0-4.8) k/uL Monocytes # (0-1.0) k/uL Eosinophils # (0-0.7) k/uL Basophils # (0-0.2) k/uL PT (10.0-12.5) sec INR (<1.2) APTT (22.0-30.0) sec Sodium (137-145) mmol/L Potassium (3.5-5.1) mmol/L Chloride (98-107) mmol/L Carbon Dioxide (22-30) mmol/L Anion Gap mmol/L BUN (7-17) mg/dL Creatinine (0.52-1.04) mg/dL Est GFR (CKD-EPI)AfAm (>60 ml/min/1.73 sqM) Est GFR (CKD-EPI)NonAf (>60 ml/min/1.73 sqM) Glucose (74-99) mg/dL Plasma Lactic Acid Jaxson 1.3 (0.7-2.0) mmol/L Calcium (8.4-10.2) mg/dL Total Bilirubin (0.2-1.3) mg/dL AST (14-36) U/L ALT (4-34) U/L Alkaline Phosphatase (38-126) U/L Troponin I <0.012 (0.000-0.034) ng/mL Total Protein (6.3-8.2) g/dL Albumin (3.5-5.0) g/dL Amylase (30-110) U/L Lipase (23-300) U/L Disposition Clinical Impression: Gastritis Disposition: HOME SELF-CARE Condition: Good Instructions (If sedation given, give patient instructions): Gastritis (ED), Diet for Stomach Ulcers and Gastritis (ED) Additional Instructions: Follow-up with PCP. Report back to ER with any new or worsening symptoms. Decrease Motrin use. Prescriptions: Sucralfate [Carafate] 1 gm PO BID #20 tablet Pantoprazole [Protonix] 40 mg PO DAILY #20 tab Is patient prescribed a controlled substance at d/c from ED?: No Referrals: Ashok Padilla DO [Primary Care Provider] - 1-2 days Time of Disposition: 01:18
[2023-07-18 01:32] VITALS: BP 115/75; PULSE 65; RESP 17
== END 2023-07-18 01:30 | disposition home or self-care (01) ==
LOC: EC 22:20
DX: K29.70 Gastritis, unspecified, without bleeding (principal); K76.0 Fatty (change of) liver, not elsewhere classified; J45.909 Unspecified asthma, uncomplicated; F12.90 Cannabis use, unspecified, uncomplicated; Z79.899 Other long term (current) drug therapy
CPT/HCPCS: 36415; 93005; 80053; 82150; 83605; 83690; 84484; 85025; 85610; 85730; 76705; 99285; 96374; 96375; 96361; J2270; J2405

== ENCOUNTER → 2023-10-29 | Outpatient (CLI) | payer BC, OTHER ==
--- NOTE | 2023-10-30 22:13 | MM ---
Reason for Exam: Screening (asymptomatic). Baseline mammogram. Patient History: Menarche at age 12. First Full-Term at age 23. Left ovary removed at age 41. Right ovary removed at age 41. Hysterectomy at age 41. Postmenopausal. Patient has history of breast feeding. Mother had breast cancer, age 54. Risk Values: Keren 5 year model risk: 1.5%. NCI Lifetime model risk: 17.7%. Prior Study Comparison: Patient's first Mammogram. Tissue Density: There are scattered fibroglandular densities. Findings: Analyzed By CAD. A few benign oil cyst calcifications are present. No persisting abnormality on 3-D images. No significant mass, suspicious calcifications, or other discrete abnormality is seen. Overall Assessment: Benign, BI-RAD 2 Management: Screening Mammogram of both breasts in 1 year. . Patient should continue monthly self-breast exams. A clinical breast exam by your physician is recommended on an annual basis. This exam should not preclude additional follow-up of suspicious palpable abnormalities. Note on Keren scores and lifetime risk: 1. A Keren score greater than 3% is considered moderate risk. If this is the case, consider specialist referral to assess eligibility for a risk reducing agent. 2. If overall lifetime risk for the development of breast cancer is 20% or higher, the patient may qualify for future screening with alternating mammogram and breast MRI. Electronically signed and approved by: Diana Hernández M.D. Radiologist
== END | disposition home or self-care (01) ==
LOC: RADMAMWWP 10:50
PROVIDERS: ATTEND Obstetrics & Gynecology
DX: Z12.31 Encounter for screening mammogram for malignant neoplasm of breast (principal); Z80.3 Family history of malignant neoplasm of breast; Z78.0 Asymptomatic menopausal state
CPT/HCPCS: 77063; 77067